=== PATIENT | male | born 1995 | race Caucasian/White ===

== ENCOUNTER 2019-04-16 15:28 | Emergency (ER) | payer OTHER, SELFPAY ==
[2019-04-16 15:35] VITALS: BP 133/86; PULSE 65; RESP 15; TEMP 36.8; O2SAT 98; BMI 21.7
--- NOTE | 2019-04-16 15:45 | ED_ITS ---
HPI - Psych <Marta Hughes PA-C - Last Filed: 04/16/19 20:52> General Chief Complaint: Psychiatric Symptoms Stated Complaint: MENTAL HEALTH EVAL Time Seen by Provider: 04/16/19 15:32 Source: patient Mode of arrival: Ambulatory Limitations: no limitations History of Present Illness HPI Narrative: This healthy 23-year-old male is brought to ED by a friend/[place] colleague due to fleeting suicidal ideations. 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 He states that she has been cheating on him, posting pictures on social media with other men, at some point would not him see his children. Due to this, he states especially when he sees a picture or a trigger, feels very upset and has had some fleeting suicidal ideation, last was a few days ago when he was driving [place] and thought about driving off of it. He states he thinks at times may be better off if he was not here, but then he thinks of his kids or looks at a picture and feels like he would not hurt himself. He does not feel like he would hurt or injure himself currently. He states he has never felt depressed or anxious aside from this situation, no history of any mental health problems in him or anyone else in the family. He has no chronic medical problems, not on any medications. He does not use any drugs or herbal medications. He states that he was talking with a friend about how he felt and this was reported to [facility] at some point, so was brought here for evaluation. He does not have weapons in the home Related Data Allergies Allergy/AdvReac Type Severity Reaction Status Date / Time No Known Drug Allergies Allergy Verified 04/16/19 15:34 Review of Systems <Marta Hughes PA-C - Last Filed: 04/16/19 20:52> Review of Systems ROS Unobtainable: All systems reviewed & are unremarkable except as noted in HPI and below Patient History <Marta Hughes PA-C - Last Filed: 04/16/19 20:52> Medical History (Updated 04/16/19 @ 16:34 by Marta Hughes PA-C) No chronic problems (Acute) Surgical History (Updated 04/16/19 @ 16:04 by Marta Hughes PA-C) No history of previous surgery (Acute) Social History (Updated 04/16/19 @ 16:04 by Marta Hughes PA-C) Smoking Status: Former smoker Social History (Updated 04/16/19 @ 16:04 by Marta Hughes PA-C) Smoking Status: Former smoker alcohol intake frequency: holidays/special occasions only Substance Use Type: does not use Exam <Marta Hughes PA-C - Last Filed: 04/16/19 20:52> Narrative Exam Narrative: GENERAL APPEARANCE: Patient sitting comfortably, in no distress. HEENT: PERRL, EOMI LUNGS: Clear to auscultation bilaterally. HEART: Rate and rhythm regular without murmur, normal S1 and S2, no S3 or S4. NEUROLOGIC: Alert and oriented with normal speech and coordination PSYCH: Speech is normal juliocesar, on topic, good eye contact, appropriate affect Initial Vital Signs Initial Vital Signs: Vital Signs Temperature 98.2 F 04/16/19 15:35 Pulse Rate 65 04/16/19 15:35 Respiratory Rate 15 04/16/19 15:35 Blood Pressure 133/86 04/16/19 15:35 Pulse Oximetry 98 04/16/19 15:35 <Magda Steinberg MD - Last Filed: 04/19/19 07:01> Initial Vital Signs Initial Vital Signs: Vital Signs Temperature 98.2 F 04/16/19 15:35 Pulse Rate 65 04/16/19 15:35 Respiratory Rate 15 04/16/19 15:35 Blood Pressure 133/86 04/16/19 15:35 Pulse Oximetry 98 04/16/19 15:35 Course <Marta Hughes PA-C - Last Filed: 04/16/19 20:52> Course Additional Information: Patient does not have any suicidal ideation currently. He does have significant stressors and has had intermittent ideation recently. He has roommates at home and will be able to have someone with him this evening. He states that he does not feel like he would harm himself this evening and does feel comfortable returning or reaching out for help if he is feeling worse again. We were able to schedule him with a local psychologist tomorrow morning, and this was discussed with [place] officer who accompanied him. He will be able to get to this appointment. Vital Signs Vital signs: Vital Signs - 8 hr 04/16/19 15:35 Temperature 98.2 F Pulse Rate 65 Respiratory Rate 15 Blood Pressure 133/86 Pulse Oximetry 98 <Magda Steinberg MD - Last Filed: 04/19/19 07:01> Vital Signs Vital signs: Vital Signs - 8 hr 04/16/19 15:35 Temperature 98.2 F Pulse Rate 65 Respiratory Rate 15 Blood Pressure 133/86 Pulse Oximetry 98 Discharge Plan Departure Patient Disposition: Home Clinical Impression: Suicidal ideation Discharge Date/Time: 04/16/19 16:44 Instructions: DI for Suicidal Ideation-Adult Activity Restrictions/Additional Instructions: Since you are not feeling like you would hurt yourself currently and have others who can be with you at home, it seems safe for you to return home tonight. As we talked about, you should return to the ED, call 911 or crisis line at if you are feeling worse or suicidal again. We have scheduled you for an appointment at 9:[address] El Ross at [address] [address], phone [phone] to help with counseling/treatment. Thank you for your service, I hope you find the happiness you deserve soon! Referrals: [facility] [Provider Group] El Ross, PHD [Non-Staff] -
== END 2019-04-16 16:44 | disposition home or self-care (01) ==
PROVIDERS: Emergency Provider Internal Medicine
DX: R45.851 Suicidal ideations (principal)
CPT/HCPCS: 99282